=== PATIENT | female | born 1970 | race Caucasian/White ===

== ENCOUNTER 2025-01-19 11:17 | Emergency (ER) | payer SELFPAY ==
[~2025-01-19] VITALS: Ht 170.2 cm; Wt 82.0 kg
[2025-01-19 11:20] VITALS: O2SAT 98
[2025-01-19] MEDS: LORAZEPAM 1MG TABLET PO ONE (12:25)
[2025-01-19] MEDS: OLANZAPINE 10MG TABLET PO SCH (12:25)
[2025-01-19 12:31] LABS: INR 1.0
[2025-01-19 12:31] LABS: CLARITY URINE CLOUDY (CLEAR); COLOR URINE YELLOW (YELLOW); GLUCOSE URINE NEGATIVE (NEGATIVE); KETONES URINE NEGATIVE (NEGATIVE); LEUKOCYTE ESTERASE URINE TRACE (NEGATIVE); NITRITE URINE NEGATIVE (NEGATIVE); OCCULT BLOOD URINE NEGATIVE (NEGATIVE); PH URINE 5.5 (4.5-8.0); PROTEIN URINE NEGATIVE (NEGATIVE); SPECIFIC GRAVITY URINE 1.024 (1.005-1.030); UROBILINOGEN URINE 1.0 E.U./dL (0.2-1.0)
[2025-01-19 12:33] LABS: BASOPHILS % 0.5 % (0.0-2.0); CREATININE 0.7 mg/dL (0.6-1.0); EOSINOPHILS % 3.4 % (0.0-5.0); HEMATOCRIT. 41.2 % (36.0-48.0); HEMOGLOBIN. 13.7 g/dL (12.0-16.0); LYMPHOCYTES % 17.8 % (20.0-50.0); MEAN PLATELET VOLUME 8.1 fl (7.4-10.4); MONOCYTES % 8.4 % (2.0-8.0); NEUTROPHILS % 69.9 % (40.0-76.0); PLATELET 281 x1000/uL (130-400); RED BLOOD CELL COUNT 5.00 mill/uL (4.2-5.4); RED CELL DISTRIBUTION WIDTH 13.3 % (11.6-14.6)
[2025-01-19 12:34] LABS: UREA NITROGEN BLOOD 11 mg/dL (9-23)
[2025-01-19 12:48] LABS: BACTERIA URINE 1+; RBC URINE 0-2 /hpf (0-2); SQUAMOUS EPITHELIAL CELL URINE 3+ /lpf (RARE/1+); YEAST URINE NONE SEEN
[2025-01-19 12:49] LABS: *AMPHETAMINES SCREEN URINE PRESUMPTIVE POSITIVE (NEGATIVE); *BARBITURATES SCREEN URINE NEGATIVE (NEGATIVE); *BENZODIAZEPINES SCREEN URINE NEGATIVE (NEGATIVE); *COCAINE SCREEN URINE NEGATIVE (NEGATIVE); CANNABINOID URINE SCREEN NEGATIVE (NEGATIVE); ECSTASY MDMA SCREEN URINE CONF.TEST INDICATED (NEGATIVE); METHADONE URINE SCREEN NEGATIVE (NEGATIVE); OPIATES URINE SCREEN NEGATIVE (NEGATIVE); PHENCYCLIDINE URINE SCREEN NEGATIVE (NEGATIVE)
[2025-01-19 12:55] LABS: TROPONIN I HIGH SENSITIVITY 36 ng/L (3.0-34)
[2025-01-19 22:00] LABS: TROPONIN I HIGH SENSITIVITY 32 ng/L (3.0-34)
[2025-01-20 03:25] VITALS: BP 126/76; PULSE 64; RESP 16; TEMP 36.8; O2SAT 100
== END 2025-01-20 09:50 | disposition home or self-care (01) ==
LOC: ER 11:17
DX: F29 Unspecified psychosis not due to a substance or known physiological condition (principal); F15.90 Other stimulant use, unspecified, uncomplicated; F60.0 Paranoid personality disorder; R10.20 Pelvic and perineal pain unspecified side; Z20.822 Contact with and (suspected) exposure to COVID-19; Z98.890 Other specified postprocedural states
CPT/HCPCS: 36415; 71045; 80048; 80305; 80307; 80320; 80329; 81003; 83880; 84484; 85025; 87426; 93005; 99285; G0480